=== PATIENT | female | born 1985 | race Caucasian/White ===

== ENCOUNTER 2016-10-14 21:12 | Emergency (ER) | payer SELFPAY ==
[~2016-10-14] VITALS: Ht 157.5 cm; Wt 48.9 kg
[~2016-10-14 21:12] MED LIST: METH40TA PO
[2016-10-14 21:25] VITALS: BP 99/69; PULSE 65; RESP 16; TEMP 98.4; O2SAT 100
[2016-10-14] MEDS ORDERED: diphenhydrAMINE HCL 50 MG/ML VIAL IM ONE (21:45)
[2016-10-14] MEDS ORDERED: PROCHLORPERAZINE INJ 10 MG/2 ML VIAL IM ONE (21:45)
[2016-10-14] MEDS ORDERED: KETOROLAC TROMETHAMINE 60 MG/2 ML (IM) VIAL IM ONE (21:45)
--- NOTE | 2016-10-14 21:52 | PD ---
HPI Chief Complaint: Headache Time Seen by Provider: 21:47 Travel History International Travel<30 days: No Contact w/Intl Traveler<30days: No Traveled to known affect area: No History of Present Illness HPI 31-year-old female presents to the emergency room for evaluation of posterior headache that occurred after falling down 4 steps at work earlier today. Patient lost her balance and fell striking the back of her head. She denies loss of consciousness, blurry vision, nausea, vomiting, and dizziness. She states that she has had a posterior headache without radiation. Worse with sound and light. No history of headaches. She took ibuprofen without significant relief in symptoms. She is not on blood thinners. Denies chronic medical conditions or daily medications. No other injuries. [facility] Past Medical History Medical History: Denies Significant Hx Diminished Hearing: No Immunizations Current: Yes Tetanus Vaccination: < 5 Years Influenza Vaccination: Yes ?: Not LMP: 10-13-16 Past Surgical History Surgical History: No Previous Surgery Social History Alcohol Use: Yes (Socially) Tobacco Use: No (/ PPD) Substance Use: No (HX OF IV DRUG USE, DENIES TODAY) Allergies-Medications (Allergen,Severity, Reaction): Coded Allergies: No Known Allergies (Unverified , 10/14/16) Reported Meds & Prescriptions Reported Meds & Active Scripts Active No Active Prescriptions or Reported Medications Review of Systems Except as stated in HPI: all other systems reviewed are Neg Physical Exam Narrative GENERAL: Well-developed, well-nourished female in no acute distress. Afebrile. Ambulatory. Interacting appropriately. SKIN: Focused skin assessment warm/dry. HEAD: Atraumatic. Normocephalic. EYES: Pupils equal and round. No scleral icterus. No injection or drainage. ENT: No nasal bleeding or discharge. Mucous membranes pink and moist. NECK: Trachea midline. No JVD. CARDIOVASCULAR: Regular rate and rhythm. No murmur appreciated. RESPIRATORY: No accessory muscle use. Clear to auscultation. Breath sounds equal bilaterally. NEUROLOGICAL: Awake and alert. Cranial nerves II through XII intact. Motor grossly within normal limits. Normal speech. Strength 5/5 and equal in upper and lower extremities. No pronator drift in upper or lower extremity. Normal finger-nose test. PSYCHIATRIC: Appropriate mood and affect; insight and judgment normal. Data Data Last Documented VS Vital Signs Date Time Temp Pulse Resp B/P Pulse Ox O2 Delivery O2 Flow Rate FiO2 10/14/16 21:32 10/14/16 21:25 98.4 65 16 100 Orders Ketorolac Inj (Toradol Inj) (10/14/16 21:45) Prochlorperazine Inj (Compazine Inj) (10/14/16 21:45) Diphenhydramine Inj (Benadryl Inj) (10/14/16 21:45) MDM Medical Decision Making Medical Screen Exam Complete: Yes Emergency Medical Condition: Yes Medical Record Reviewed: Yes Differential Diagnosis Headache versus traumatic brain injury versus concussion Narrative Course 31-year-old female presents to the emergency room for evaluation of posterior headache after falling and hitting the back of her head earlier today. Patient fell down 4 steps. There was no loss of consciousness, nausea, vomiting, changes in vision, or dizziness. She denies any other injury. No focal neurological deficits on exam. Patient is interacting appropriately. [facility] CT we will exclude state for imaging at this time. Patient was given Toradol, Compazine, and Benadryl the emergency room. She was discharged with instructions to take ibuprofen and follow up with the primary care physician. She understands and agrees to plan. Diagnosis Primary Impression: Headache in back of head Referrals: Primary Care Physician Patient Instructions: Acute Headache (ED), General Instructions Additional Instructions: Rest and drink plenty of fluids. Take ibuprofen with food as directed, as needed for pain. Apply ice to the affected area for 20 minutes at a time, as needed for pain and swelling. Follow-up with a primary care physician. Return to the emergency room for worsening symptoms. Scripts No Active Prescriptions or Reported Meds Disposition: 01 DISCHARGE HOME Condition: Stable Ibis Rios Oct 14, 2016 21:52
== END 2016-10-14 22:13 | disposition home or self-care (01) ==
LOC: PHEFT 21:12
DX: R51 Headache (principal); W10.9XXA Fall (on) (from) unspecified stairs and steps, initial encounter; Y99.0 Civilian activity done for income or pay
CPT/HCPCS: 96372; 99284; J0780; J1200; J1885